=== PATIENT | female | born 1965 | race Asian ===

== ENCOUNTER 2018-07-01 00:38 | Inpatient (IN) | payer MEDICARE, MEDICAID ==
[2018-07-01] VITALS (14 sets, daily range): BP systolic 128–186; BP diastolic 60–91
[~2018-07-01] VITALS: Ht 160 cm; Wt 92.3 kg
[2018-07-01] MEDS ORDERED: NIFE60TA64 PO (02:15)
[2018-07-01] MEDS ORDERED: ASPI-1158 PO (02:15)
[2018-07-01] MEDS ORDERED: LISI-604 PO (02:15)
[2018-07-01] MEDS ORDERED: METO100T16 PO (02:15)
[2018-07-01] MEDS ORDERED: MORP10DI10 IV (02:15)
[2018-07-01] MEDS ORDERED: ATOR40TA70 PO (02:15)
[2018-07-01] MEDS ORDERED: REN800 PO (02:15)
[2018-07-01] MEDS ORDERED: DEXT 5%/0.9% NACL 1,000 ML IV SCH (02:30)
[2018-07-01] MEDS ORDERED: MORPHINE SULFATE 4 MG/ML CPJ (NOT FOR IM USE) IV PRN (02:30)
[2018-07-01] MEDS: SEVELAMER CARBONATE 800 MG TABLET PO SCH ×3 (07:20→17:32)
[2018-07-01 07:21] LABS: PROTHROMBIN TIME 10.7 sec (9.6-11.0)
[2018-07-01 07:42] LABS: HEMATOCRIT 33.2 % (36.0-48.0); HEMOGLOBIN 10.9 g/dL (12.0-16.0); MEAN CORPUSCULAR VOLUME 94.1 fL (81.0-99.0); PLATELET 220 x1000/uL (130-400); RED BLOOD CELL COUNT 3.53 mill/uL (4.2-5.4); RED CELL DISTRIBUTION WIDTH 15.3 % (11.6-14.6)
[2018-07-01] MEDS ORDERED: HYDRALAZINE 20MG/ML VIAL IV PRN ×2 (07:45→13:45)
[2018-07-01] MEDS: LISINOPRIL 20MG TABLET PO SCH (08:34)
[2018-07-01] MEDS: METOPROLOL TARTRATE 100MG TABLET PO SCH ×2 (08:34→20:35)
[2018-07-01] MEDS: NIFEDIPINE XL 60MG TAB PO SCH (08:34)
[2018-07-01] MEDS ORDERED: DEXTROSE 50% WATER 50ML SYRINGE IV PRN ×2 (08:45→14:45)
[2018-07-01] MEDS: ASPIRIN 81MG TABLET PO SCH (09:00)
[2018-07-01] MEDS ORDERED: HYDRALAZINE 20MG/ML VIAL ONE (11:09)
[2018-07-01] MEDS: BLOOD SUGAR DIAGNOSTIC STRIP TEST SCH ×3 (11:09→20:36)
[2018-07-01] MEDS: NITROGLYCERIN OINT 1GM/INCH UDPKT TD SCH ×2 (11:12→17:32)
[2018-07-01] MEDS: INSULIN LISPRO 100 UNITS/ML SUBCUT SCH ×3 (11:26→20:37)
[2018-07-01] MEDS ORDERED: LIDOCAINE HCL 1% 20ML VIAL (Pyxis) INJ ONE (14:27)
[2018-07-01] MEDS ORDERED: IODIXANOL 320MG/ML 100 ML BOTTLE IV ONE ×2 (14:29→15:39)
[2018-07-01] MEDS ORDERED: ONDANSETRON HCL 4MG/2ML INJ IV PRN (14:45)
[2018-07-01] MEDS ORDERED: DOCUSATE SODIUM 100MG CAPSULE PO PRN (14:45)
[2018-07-01] MEDS ORDERED: ACETAMINOPHEN 325MG TABLET PO PRN ×2 (14:45→16:00)
[2018-07-01] MEDS ORDERED: MAGNESIUM/ALUMINUM HYDROXIDE/SIMETHICONE 30ML UDC PO PRN (14:45)
[2018-07-01] MEDS ORDERED: FENTANYL CITRATE/PF 50MCG/ML 2ML VIAL ONE (15:07)
[2018-07-01] MEDS ORDERED: MIDAZOLAM HCL 2 MG/2 ML VIAL ONE (15:07)
[2018-07-01] MEDS ORDERED: NICARDIPINE 100MCG/ML 10ML VIAL (CATH LAB) IV ONE (15:23)
[2018-07-01] MEDS ORDERED: NITROGLYCERIN 50MCG/ML 10ML VIAL (CATH LAB) IV ONE (15:23)
[2018-07-01] MEDS ORDERED: HEPARIN SODIUM 1,000 UNIT/1ML VIAL IV ONE (15:23)
[2018-07-01] MEDS ORDERED: ATROPINE SULFATE 1MG/10ML SYR IV PRN (16:00)
[2018-07-01] MEDS ORDERED: BLOOD SUGAR DIAGNOSTIC STRIP TEST SCH (16:50)
[2018-07-01] MEDS ORDERED: CLONIDINE 0.1MG TABLET PO PRN (18:45)
[2018-07-01] MEDS: ATORVASTATIN CALCIUM 40MG TABLET PO SCH (20:35)
[2018-07-01] MEDS ORDERED: INSULIN GLARGINE UD 100 UNITS/ML SYR SUBCUT SCH (22:00)
[2018-07-01] MEDS: INSULIN GLARGINE UD 100 UNITS/ML SYR SUBCUT SCH (22:46)
[2018-07-02] VITALS (14 sets, daily range): BP systolic 108–164; BP diastolic 48–72
[2018-07-02] MEDS: NITROGLYCERIN OINT 1GM/INCH UDPKT TD SCH ×4 (00:14→17:06)
[2018-07-02] MEDS: BLOOD SUGAR DIAGNOSTIC STRIP TEST SCH ×4 (05:42→21:00)
[2018-07-02 06:43] LABS: BASOPHILS % 0.6 % (0.0-2.0); EOSINOPHILS % 4.3 % (0.0-5.0); HEMATOCRIT. 30.5 % (36.0-48.0); HEMOGLOBIN. 10.3 g/dL (12.0-16.0); LYMPHOCYTES % 11.9 % (20.0-50.0); MEAN CORPUSCULAR HEMOGLOBIN 31.7 pg (28.0-32.0); MEAN CORPUSCULAR VOLUME 94.4 fL (81.0-99.0); MONOCYTES % 8.3 % (2.0-8.0); NEUTROPHILS % 74.9 % (40.0-76.0); PLATELET 229 x1000/uL (130-400); RED BLOOD CELL COUNT 3.23 mill/uL (4.2-5.4); RED CELL DISTRIBUTION WIDTH 15.4 % (11.6-14.6)
[2018-07-02 07:13] LABS: PHOSPHORUS 5.4 mg/dL (2.5-4.9)
[2018-07-02 07:17] LABS: T4 FREE 1.22 ng/dL (0.76-1.46)
[2018-07-02] MEDS: INSULIN LISPRO 100 UNITS/ML SUBCUT SCH ×4 (07:20→21:00)
[2018-07-02] MEDS: NIFEDIPINE XL 60MG TAB PO SCH (08:06)
[2018-07-02] MEDS: ASPIRIN 81MG TABLET PO SCH (08:06)
[2018-07-02] MEDS: LISINOPRIL 20MG TABLET PO SCH (08:06)
[2018-07-02] MEDS: METOPROLOL TARTRATE 100MG TABLET PO SCH ×2 (08:06→21:00)
[2018-07-02] MEDS: SEVELAMER CARBONATE 800 MG TABLET PO SCH ×4 (08:07→18:27)
[2018-07-02] MEDS: ATORVASTATIN CALCIUM 40MG TABLET PO SCH (20:53)
[2018-07-02] MEDS: INSULIN GLARGINE UD 100 UNITS/ML SYR SUBCUT SCH (22:00)
== END 2018-07-02 23:58 | disposition home or self-care (01) | DRG 280 ==
LOC: 3WST 00:38
PROVIDERS: ADMIT Internal Medicine Nephrology; ATTEND Internal Medicine Nephrology
PROC: 4A023N7 Measurement of Cardiac Sampling and Pressure, Left Heart, Percutaneous Approach (ICD-10-PCS; 2018-07-01)
PROC: B2151ZZ Fluoroscopy of Left Heart using Low Osmolar Contrast (ICD-10-PCS; 2018-07-01)
PROC: B2131ZZ Fluoroscopy of Multiple Coronary Artery Bypass Grafts using Low Osmolar Contrast (ICD-10-PCS; 2018-07-01)
PROC: B2181ZZ Fluoroscopy of Left Internal Mammary Bypass Graft using Low Osmolar Contrast (ICD-10-PCS; 2018-07-01)
PROC: B2111ZZ Fluoroscopy of Multiple Coronary Arteries using Low Osmolar Contrast (ICD-10-PCS; 2018-07-01)
PROC: 5A1D70Z Performance of Urinary Filtration, Intermittent, Less than 6 Hours Per Day (ICD-10-PCS; principal; 2018-07-02)
DX: I21.4 Non-ST elevation (NSTEMI) myocardial infarction (principal); N18.6 End stage renal disease; I13.11 Hypertensive heart and chronic kidney disease without heart failure, with stage 5 chronic kidney disease, or end stage renal disease; I25.110 Atherosclerotic heart disease of native coronary artery with unstable angina pectoris; E11.22 Type 2 diabetes mellitus with diabetic chronic kidney disease; E78.5 Hyperlipidemia, unspecified; D64.9 Anemia, unspecified; I25.2 Old myocardial infarction; Z79.4 Long term (current) use of insulin; Z95.1 Presence of aortocoronary bypass graft; Z99.2 Dependence on renal dialysis; Z98.49 Cataract extraction status, unspecified eye
CPT/HCPCS: 36415; 80048; 80061; 82962; 83036; 83735; 84100; 84439; 84443; 84481; 84484; 85027; 93005; 93306; 93459; 93970; C1760; C1769; C1887; C1893; J0360; J1644; J1815; J2250; J3010; J3490; J7042; Q9967